=== PATIENT | female | born 1965 | race Caucasian/White ===

== ENCOUNTER 2024-03-04 13:48 | Emergency (ER) | payer MEDICAID ==
[~2024-03-04] VITALS: Ht 154.9 cm; Wt 68.2 kg
[2024-03-04 13:50] VITALS: TEMP 98.2
[2024-03-04] MEDS: ACETAMINOPHEN 500 MG TABLET PO ONE (14:45)
[2024-03-04] MEDS: LIDOCAINE 5% TRANSDERMAL PATCH TD ONE (14:46)
[2024-03-04] MEDS: KETOROLAC TROMETHAMINE 30 MG/ML VIAL IM ONE (14:46)
[2024-03-04] MEDS ORDERED: OXYC5 PO (16:51)
[2024-03-04] MEDS ORDERED: IBUP-1492 PO (16:51)
[2024-03-04] MEDS ORDERED: LIDO700A15 TP (16:51)
[2024-03-04] MEDS ORDERED: ACET-3385 PO (16:51)
[2024-03-04 17:18] VITALS: BP 159/82; PULSE 85; RESP 18; O2SAT 99
== END 2024-03-04 17:20 | disposition home or self-care (01) ==
LOC: EMS 13:48
DX: M79.605 Pain in left leg (principal); E11.9 Type 2 diabetes mellitus without complications
CPT/HCPCS: 99285; 93971; 82962; 96372; J1885